=== PATIENT | female | born 1945 | race Caucasian/White ===

== ENCOUNTER 2016-07-12 07:09 | Day surgery (SDC) | payer OTHER, BC ==
[2016-07-10 13:43] VITALS: BMI 21.2
[2016-07-12] MEDS ORDERED: LIDOCAINE HCL 2% (20ML MULTI-DOSE VIAL) NR ONE (07:21)
[2016-07-12] MEDS ORDERED: SUCCINYLCHOLINE CHLORIDE 200 MG/10 ML VIAL ONE ×2 (07:35→07:44)
[2016-07-12] MEDS ORDERED: PROPOFOL 20 ML ONE ×6 (07:35→07:43)
[2016-07-12] MEDS ORDERED: MIDAZOLAM HCL 2 MG/2 ML SINGLE DOSE VIAL ONE (07:43)
[2016-07-12] MEDS ORDERED: ePHEDrine SULFATE 50 MG/1 ML AMPULE ONE (07:44)
[2016-07-12] MEDS ORDERED: LIDOCAINE HCL 2% (50ML VIAL) INF ONE (08:15)
[2016-07-12] MEDS ORDERED: ACETAMINOPHEN 325 MG TABLET (FP) PO PRN (08:19)
[2016-07-12] MEDS ORDERED: ONDANSETRON 4 MG/2 ML VIAL IVPUSH PRN (08:20)
[2016-07-12] MEDS ORDERED: oxyCODONE HCL 5 MG TABLET PO PRN (08:21)
[2016-07-12] MEDS ORDERED: LACTATED RINGERS SOLUTION 1,000 ML IV SCH (08:30)
[2016-07-12] MEDS ORDERED: ceFAZolin SODIUM 1 GM VIAL ONE (08:35)
[2016-07-12 09:14] VITALS: BP 130/72; PULSE 68; TEMP 98
--- NOTE | 2016-07-13 08:53 | OP ---
DATE OF OPERATION: 07/12/2016 PREOPERATIVE DIAGNOSIS: Right trigger finger of thumb. POSTOPERATIVE DIAGNOSIS: Right trigger finger of thumb. OPERATIVE PROCEDURE: Right thumb trigger finger release. SURGEON: Sam Jean MD ANESTHESIA: Local with sedation. COMPLICATIONS: None. ESTIMATED BLOOD LOSS: Minimal. INDICATIONS FOR PROCEDURE: The patient is a 70-year-old female with the above finding indicated for operative treatment. Risks, benefits and alternatives were discussed with the patient at length. Proper informed consent was obtained. PROCEDURE: After proper identification of the patient and the correct operative site, the patient was brought to the operating room and placed supine on the operating room table. All bony prominences were well padded. Sedation was given by the anesthesiologist. Local anesthesia was given with 2% lidocaine. The right upper extremity was prepped and draped in the usual sterile fashion. A well-padded tourniquet was placed sterile prep. Esmarch bandage used to exsanguinate the right upper extremity. The tourniquet was inflated to 250 mmHg. A transverse incision was made over the A1 bryan to the thumb. The incision was deepened sharply through skin with blunt and sharp dissection of the subcutaneous tissues. The A1 bryan was identified and neurovascular structures were carefully protected. A1 bryan was divided longitudinally. The patient was asked to flex and extend and her finger and no further triggering was noted. The wound irrigated with copious amounts of normal saline and repaired with 5-0 nylon suture. Sterile dressings were applied. The patient was reversed from anesthesia and brought to the recovery room in stable condition. She tolerated the procedure well. SAM JEAN M.D. [id number]
== END 2016-07-12 09:35 | disposition home or self-care (01) ==
LOC: FASU 07:09
PROVIDERS: ATTEND Orthopaedic Surgery Hand Surgery
PROC: 0LN70ZZ Release Right Hand Tendon, Open Approach (ICD-10-PCS; principal; 2016-07-12 08:21)
DX: M65.311 Trigger thumb, right thumb (principal)